=== PATIENT | male | born 1975 ===

== ENCOUNTER 2017-02-11 11:01 | Emergency (ER) | payer OTHER ==
[2017-02-11 11:09] VITALS: BP 127/89; PULSE 100; RESP 17; TEMP 97.7; O2SAT 98
--- NOTE | 2017-02-11 12:00 | C.PDOC ---
History Of Present Illness 41 yr old male presents to the ER for a wound check. Patient states 3-4 days ago he cut his left thumb on a table saw. Patient was initially seen in another ER in [place] but is here for wound check. Patient reports of minimal pain and no bleeding. Patient denies arm pain, hand pain, weakness or numbness. Time Seen by Provider: 02/11/17 11:19 Chief Complaint (Nursing): Wound Check History Per: Patient History/Exam Limitations: no limitations Onset/Duration Of Symptoms: Days Ago (3-4) Past Medical History Reviewed: Historical Data, Nursing Documentation, Vital Signs Vital Signs: Last Vital Signs Temp 97.7 F 02/11/17 11:08 Pulse 100 H 02/11/17 11:08 Resp 17 02/11/17 11:08 BP 127/89 02/11/17 11:08 Pulse Ox 98 02/11/17 20:25 Family History: States: No Known Family Hx - Social History Hx Alcohol Use: No Hx Substance Use: No Review Of Systems Except As Marked, All Systems Reviewed And Found Negative. Musculoskeletal: Positive for: Other ((+) Left thumb wound check). Negative for : Arm Pain, Hand Pain Neurological: Negative for: Weakness, Numbness Physical Exam - Physical Exam Appears: Non-toxic, No Acute Distress Skin: Warm, Dry, Other (Left thumb: 1cm skin and complete nail avulsion to the distal thumb. ) Head: Atraumatic, Normacephalic Eye(s): bilateral: Normal Inspection Oral Mucosa: Moist Extremity: Normal ROM, No Tenderness, Capillary Refill (<2 secs), No Swelling Pulses: Left Radial: Normal, Right Radial: Normal Neurological/Psych: Oriented x3, Normal Speech, Normal Motor, Normal Sensation Gait: Steady ED Course And Treatment O2 Sat by Pulse Oximetry: 98 (RA) Pulse Ox Interpretation: Normal Progress Note: The wound was redressed with xeroform and sterile dressing Medical Decision Making Medical Decision Making: Patient reports that he already has an appointment with the Hand surgeon on Tuesday (in 2 days) and will follow up then without fail/ Disposition - Disposition Referrals: [facility] [Outside] Disposition: HOME/ ROUTINE Disposition Time: 11:58 Condition: GOOD Additional Instructions: Follow up with the Hand surgeon on Tuesday without fail. Take antibiotics until complete. Instructions: Finger Fracture (ED) Forms: [employer] ([place]) - Clinical Impression Clinical Impression: Visit for wound check, Skin avulsion - PA / TRAFFIC COURT MAGISTRATE / Resident Statement MD/DO has reviewed & agrees with the documentation as recorded. - Scribe Statement The provider has reviewed the documentation as recorded by the Scribe Charlotte Vegas All medical record entries made by the Scribe were at my direction and personally dictated by me. I have reviewed the chart and agree that the record accurately reflects my personal performance of the history, physical exam, medical decision making, and the department course for this patient. I have also personally directed, reviewed, and agree with the discharge instructions and disposition.
== END 2017-02-11 12:06 | disposition home or self-care (01) ==
LOC: C.ER 11:01
DX: S61.002D Unspecified open wound of left thumb without damage to nail, subsequent encounter (principal); W27.8XXD Contact with other nonpowered hand tool, subsequent encounter